=== PATIENT | female | born 1960 | race African-American/Black ===

== ENCOUNTER 2020-11-03 15:58 | Emergency (ER) | payer OTHER | END 2020-11-03 23:37 | disposition home or self-care (01) | LOC: ER 15:58 | PROVIDERS: Nurse Practitioner | DX: J02.9 Acute pharyngitis, unspecified (principal); Z20.822 Contact with and (suspected) exposure to COVID-19; R05 Cough; R53.83 Other fatigue; E11.9 Type 2 diabetes mellitus without complications; Z88.1 Allergy status to other antibiotic agents; Z88.8 Allergy status to other drugs, medicaments and biological substances ==